=== PATIENT | female | born 1995 | race American Indian/Alaskan Native ===

== ENCOUNTER 2021-07-19 09:54 | Emergency (ER) | payer SELFPAY ==
[2021-07-19 11:04] VITALS: BP 127/58
[2021-07-19] MEDS ORDERED: ACETAMINOPHEN 325 MG TAB PO ONE (13:07)
--- NOTE | 2021-07-19 13:08 | Emergency Department Report ---
ED General Adult HPI - General Chief complaint: Abdominal Pain Stated complaint: ABDOMINAL PAIN (7WKS PREG) Time Seen by Provider: 07/19/21 12:58 Source: patient, RN notes reviewed Mode of arrival: Ambulatory Limitations: No Limitations - History of Present Illness Initial comments: The patient was evaluated in the emergency department for symptoms described in the history of present illness. He/she was evaluated in the context of the global COVID-19 pandemic, which necessitated consideration that the patient might be at risk for infection with the virus that causes COVID-19. Institutional protocols and algorithms that pertain to the evaluation of patients at risk for COVID-19 are in a state of rapid change based on information released by regulatory bodies including the CDC and federal and state organizations. These policies and algorithms were followed during the patient's care in the emergency department. Please note that these policies, procedures and recommendations changed on a rapid basis. The patient is a 25-year-old female who is 1, para 0, last menstrual period mid April, who presents to the ER with a complaint of 2 weeks abdominal cramping. No nausea, vomiting, diarrhea, fever, or dysuria. No vaginal bleeding. No additional injuries or complaints. Reports having had an ultrasound performed at another hospital/emergency room ("I do not remember which one") a few weeks ago. Does not have an outpatient [facility] CONTR[facility]LLER at this time. Has not taken anything for pain. -: Gradual, week(s) Location: abdomen Severity scale (0 -10): 10 Quality: aching Consistency: intermittent Improves with: none Worsens with: none Associated Symptoms: denies other symptoms - Related Data Previous Rx's Medication Instructions Recorded Last Taken Type Acetaminophen [Non-Aspirin Extra 500 mg PO Q6HR PRN #30 tablet 07/19/21 Unknown Rx Strength] Doxylamine Succinate/Vit B6 1 each PO QHS PRN #30 tablet. 07/19/21 Unknown Rx [Julia Granados 10-10 mg Tablet] Medina Root [Medina] 250 mg PO QID PRN #30 capsule 07/19/21 Unknown Rx Vit-Fe Fumar-FA [ 1 tab PO QDAY #30 tablet 07/19/21 Unknown Rx Vitamin] Allergies Allergy/AdvReac Type Severity Reaction Status Date / Time No Known Allergies Allergy Unverified 07/19/21 10:59 ED Review of Systems ROS: Stated complaint: ABDOMINAL PAIN (7WKS PREG) Other details as noted in HPI Constitutional: denies: fever Eyes: denies: eye discharge ENT: denies: epistaxis Respiratory: denies: cough Cardiovascular: denies: chest pain Gastrointestinal: abdominal pain. denies: nausea, vomiting, diarrhea, hematemesis, melena, hematochezia Genitourinary: denies: dysuria Musculoskeletal: denies: back pain Neurological: denies: weakness ED Past Medical Hx - Medications Home Medications: Home Medications Medication Instructions Recorded Confirmed Last Taken Type Acetaminophen [Non-Aspirin Extra 500 mg PO Q6HR PRN #30 tablet 07/19/21 Unknown Rx Strength] Doxylamine Succinate/Vit B6 1 each PO QHS PRN #30 tablet. 07/19/21 Unknown Rx [Diclegis Dr 10-10 mg Tablet] Medina Root [Medina] 250 mg PO QID PRN #30 capsule 07/19/21 Unknown Rx Vit-Fe Fumar-FA [ 1 tab PO QDAY #30 tablet 07/19/21 Unknown Rx Vitamin] ED Physical Exam - General Limitations: No Limitations General appearance: alert, in no apparent distress - Head Head exam: Present: atraumatic, normocephalic - Eye Eye exam: Present: normal appearance, EOMI. Absent: nystagmus - ENT ENT exam: Present: normal exam, normal orophraynx, mucous membranes moist, normal external ear exam - Neck Neck exam: Present: normal inspection, full ROM. Absent: tenderness, meningismus - Respiratory Respiratory exam: Present: normal lung sounds bilaterally. Absent: respiratory distress, wheezes, rales, rhonchi, stridor, decreased breath sounds - Cardiovascular Cardiovascular Exam: Present: regular rate, normal rhythm, normal heart sounds. Absent: bradycardia, tachycardia, irregular rhythm, systolic murmur, diastolic murmur, rubs, gallop - GI/Abdominal GI/Abdominal exam: Present: soft. Absent: distended, tenderness, guarding, rebound, rigid, pulsatile mass - Extremities Exam Extremities exam: Present: normal inspection, full ROM, other (2+ pulses noted in the bilateral upper and lower extremities. There is no palpable cord. negative Homans sign. Muscular compartments are soft. The pelvis is stable.). Absent: pedal edema, calf tenderness - Back Exam Back exam: Present: normal inspection, full ROM. Absent: tenderness, CVA tenderness (R), CVA tenderness (L), paraspinal tenderness, vertebral tenderness - Neurological Exam Neurological exam: Present: alert, oriented X3, normal gait, other (No facial droop. Tongue midline. Extraocular movements intact bilaterally. Facial sensation intact to light touch in V1, V2, V3 distribution bilaterally. 5 and a 5 strength in 4 extremities. Sensation intact to light touch in 4 extremi ties.). Absent: motor sensory deficit - Psychiatric Psychiatric exam: Present: normal affect, normal mood - Skin Skin exam: Present: warm, dry, intact, normal color. Absent: rash ED Course Vital Signs 07/19/21 11:02 Temperature 99.1 F Pulse Rate 79 Respiratory 18 Rate Blood Pressure 127/58 [Right] O2 Sat by Pulse 100 Oximetry - Reevaluation(s) Reevaluation #1: 07/19/21 13:39 Differential diagnosis, including but not limited to: Constipation, UTI, bacteriuria, subchorionic bleed, ectopic , heterotopic , round ligament pain, functional abdominal pain Assessment and plan: 25-year-old female, who was afebrile, with reassuring vital signs, with no abdominal tenderness, rebound or guarding, negative Keller sign, negative Rovsing sign, no right lower quadrant tenderness, no right upper qu adrant tenderness, with a benign and unremarkable physical examination, with a reported history of abdominal pain and cramping for 2 weeks. Obtain ultrasound, urinalysis, CBC, quant hCG, and type and screen. Treat with Tylenol for pain. Reassess. History and physical not consistent with emergent surgical pathology at this time. 07/19/21 14:39 Patient in no acute distress. Urinalysis nonactionable. Ultrasound confirms IUP without concerning findings. No evidence of bleeding noted. Patient resting comfortably in stretcher at this time. She may follow-up with an outpatient [facility] provider to establish care. ED Medical Decision Making - Lab Data Result diagrams: 07/19/21 14:04 Vital Signs 07/19/21 11:02 Temperature 99.1 F Pulse Rate 79 Respiratory 18 Rate Blood Pressure 127/58 [Right] O2 Sat by Pulse 100 Oximetry Lab Results 07/19/21 07/19/21 Range/Units 14:04 Unknown WBC 4.8 (4.5-11.0) K/mm3 RBC 4.22 (3.65-5.03) M/mm3 Hgb 12.3 (10.1-14.3) gm/dl Hct 37.7 (30.3-42.9) % MCV 89 (79-97) fl MCH 29 (28-32) pg MCHC 33 (30-34) % RDW 14.7 (13.2-15.2) % Plt Count 209 (140-440) K/mm3 Lymph % (Auto) 38.3 H (13.4-35.0) % [place] % (Auto) 9.8 H (0.0-7.3) % Eos % (Auto) 0.5 (0.0-4.3) % Baso % (Auto) 0.5 (0.0-1.8) % Lymph # (Auto) 1.8 (1.2-5.4) K/mm3 [place] # (Auto) 0.5 (0.0-0.8) K/mm3 Eos # (Auto) 0.0 (0.0-0.4) K/mm3 Baso # (Auto) 0.0 (0.0-0.1) K/mm3 Seg Neutrophils % 50.9 (40.0-70.0) % Seg Neutrophils # 2.4 (1.8-7.7) K/mm3 Urine Color Yellow (Yellow) Urine Turbidity Hazy (Clear) Urine pH 7.0 (5.0-7.0) Ur Specific [place] 1.010 (1.003-1.030) Urine Protein <15 mg/dl (Negative) mg/dL Urine Glucose (UA) Neg (Negative) mg/dL Urine Ketones Neg (Negative) mg/dL Urine Blood Neg (Negative) Urine Nitrite Neg (Negative) Urine Bilirubin Neg (Negative) Urine Urobilinogen < 2.0 (<2.0) mg/dL Ur Leukocyte Esterase Neg (Negative) Urine WBC (Auto) < 1.0 (0.0-6.0) /HPF Urine RBC (Auto) < 1.0 (0.0-6.0) /HPF U Epithel Cells (Auto) 6.0 (0-13.0) /HPF Urine Mucus Few /HPF - Radiology Data Radiology results: pending, report reviewed, image reviewed [facility] OBSTETRIC ULTRASOUND ULTRASOUND OB TRANSVAGINAL HISTORY: Pain during COMPARISON: None. TECHNIQUE: Routine transabdominal and transvaginal OB ultrasound performed. FINDINGS: Uterus: Mildly enlarged measuring 9.5 x 5.6 x 6.2 cm. Gestational Sac: Well-defined oval shape and intrauterine in location. Yolk Sac: Normal in appearance. Fetus/Embryo: [place]- rump length of 1.71 cm, corresponding to an estimated gestational age of 8 weeks 1 day. Embryonic/ anatomy is too small for evaluation. Embryonic/ cardiac activity: 176bpm Placenta: Too small for evaluation. Amniotic fluid volume: Subjectively appropriate for gestational age. Ovaries: The right ovary is normal in size and appearance with normal blood flow, measuring 2.2 x 1.6 x 1.2 cm. The left ovary is normal in size and appearance with normal blood flow, measuring 4.4 x 2.3 x 2.5 cm. Additional findings: None. IMPRESSION Early live intrauterine . No acute abnormality is appreciated. Signer Name: Jesse Dye Jr, MD Signed: 07/19/2021 1:15 PM Workstation Name: [id number] Critical care attestation.: If time is entered above; I have spent that time in minutes in the direct care of this critically ill patient, excluding procedure time. ED Disposition Clinical Impression: Abdominal pain during Qualifiers: Trimester: first trimester Qualified Code(s): O26.891 - Other specified pre gnancy related conditions, first trimester; R10.9 - Unspecified abdominal pain Disposition: 01 HOME / SELF CARE / HOMELESS Is pt being admited?: No Does the pt Need Aspirin: No Condition: Good Instructions: Abdominal Pain (ED) Additional Instructions: Please take the pain medication as needed and directed, vitamins as directed, and nausea medicines as needed and directed. Follow-up as soon as possible with an outpatient [facility] CONTR[facility]LLER provider to establish outpatient care. Avoid consumption of Motrin, ibuprofen, Naprosyn, Aleve, heavy and spicy foods. Use the [employer] affordable prescription card to obtain affordable prescriptions if necessary. Please return to the emergency room right away with new pain, worsened pain, migration of pain, projectile vomiting, change in mental status, confusion, inability tolerate liquid feeds, new, worsened or different symptoms not present on the initial emergency room evaluation Prescriptions: Medina Root [Medina] 250 mg PO QID PRN #30 capsule PRN Reason: Nausea Acetaminophen [Non-Aspirin Extra Strength] 500 mg PO Q6HR PRN #30 tablet PRN Reason: Pain , Severe (7-10) Vit-Fe Fumar-FA [ Vitamin] 1 tab PO QDAY #30 tablet Referrals: [facility] [Provider Group] - 3-5 Days [facility] [Provider Group] - 3-5 Days [facility] [Provider Group] - 3-5 Days
[2021-07-19 13:59] LABS: Bilirubin,Urine NEG (Negative); Blood,Urine NEG (Negative); Color,Urine Yellow (Yellow); Mucus,Urine FEW /HPF; Protein,Urine <15 mg/dL mg/dL (Negative); Urobilinogen,Urine < 2.0 mg/dL (<2.0); WBC,Urine < 1.0 /HPF (0.0-6.0)
[2021-07-19 14:01] LABS: RBC,Urine < 1.0 /HPF (0.0-6.0)
[2021-07-19 14:17] LABS: Basophils % (Auto) 0.5 % (0.0-1.8); Eosinophils % (Auto) 0.5 % (0.0-4.3); Hematocrit 37.7 % (30.3-42.9); Hemoglobin 12.3 gm/dl (10.1-14.3); Lymphocytes # (Auto) 1.8 K/mm3 (1.2-5.4); Lymphocytes % (Auto) 38.3 % (13.4-35.0); Mean Corpuscular HGB Conc 33 % (30-34); Mean Corpuscular Volume 89 fl (79-97); Monocytes # (Auto) 0.5 K/mm3 (0.0-0.8); Monocytes % (Auto) 9.8 % (0.0-7.3); Platelet Count 209 K/mm3 (140-440); Red Blood Count 4.22 M/mm3 (3.65-5.03); Red Cell Distribution Width 14.7 % (13.2-15.2)
--- NOTE | 2021-07-19 14:20 | Ultrasound Report ---
FIRSTTRIMESTER OBSTETRIC ULTRASOUND ULTRASOUND OB TRANSVAGINAL HISTORY: Pain during COMPARISON: None. TECHNIQUE: Routine transabdominal and transvaginal OB ultrasound performed. FINDINGS: Uterus: Mildly enlarged measuring 9.5 x 5.6 x 6.2 cm. Gestational Sac: Well-defined oval shape and intrauterine in location. Yolk Sac: Normal in appearance. Fetus/Embryo: [place]-rump length of 1.71 cm, corresponding to an estimated gestational age of 8 weeks 1 day. Embryonic/ anatomy is too small for evaluation. Embryonic/ cardiac activity: 176bpm Placenta: Too small for evaluation. Amniotic fluid volume: Subjectively appropriate for gestational age. Ovaries: The right ovary is normal in size and appearance with normal blood flow, measuring 2.2 x 1. 6 x 1.2 cm. The left ovary is normal in size and appearance with normal blood flow, measuring 4.4 x 2.3 x 2.5 cm. Additional findings: None. IMPRESSION Early live intrauterine . No acute abnormality is appreciated. Signer Name: Jesse Dye Jr, MD Signed: 07/19/2021 2:15 PM Workstation Name: [id number]
== END 2021-07-19 15:57 | disposition home or self-care (01) ==
LOC: ED 09:54
DX: O26.891 Other specified pregnancy related conditions, first trimester (principal); R10.9 Unspecified abdominal pain; Z79.82 Long term (current) use of aspirin; Z79.899 Other long term (current) drug therapy; Z3A.01 Less than 8 weeks gestation of pregnancy
CPT/HCPCS: 36415; 76801; 76817; 81001; 84702; 85025; 86850; 86900; 86901; 99284

== ENCOUNTER 2022-02-21 14:10 | Outpatient (CLI) | payer SELFPAY ==
[2022-02-21 15:01] VITALS: BP 113/74
[2022-02-21] MEDS ORDERED: hydrOXYzine HCL 100 MG/2 ML INJ IM ONE (15:48)
[2022-02-21] MEDS ORDERED: LACTATED RINGERS 1,000 ML IV ONE (15:48)
== END 2022-02-21 18:00 | disposition home or self-care (01) ==
LOC: TRG 14:10 → APU 14:11 → TRG 18:00
PROVIDERS: ATTEND Obstetrics & Gynecology Gynecology
DX: O62.9 Abnormality of forces of labor, unspecified (principal); O46.93 Antepartum hemorrhage, unspecified, third trimester; Z3A.39 39 weeks gestation of pregnancy
CPT/HCPCS: 59025; 96360

== ENCOUNTER 2022-02-22 03:14 | Inpatient (IN) | payer SELFPAY ==
[2022-02-22] MEDS ORDERED: ACETAMINOPHEN 325 MG TAB PO PRN (03:52)
[2022-02-22] MEDS ORDERED: MINERAL OIL 30 ML ORAL LIQD PO PRN (03:52)
[2022-02-22] MEDS ORDERED: BUTORPHANOL 2 MG/1 ML INJ IV PRN ×2 (03:52)
[2022-02-22] MEDS ORDERED: fentaNYL 100 MCG/2 ML INJ IV PRN (03:52)
[2022-02-22] MEDS ORDERED: METHYLERGONOVINE MALEATE 0.2 MG/ML VIAL IM PRN (03:52)
[2022-02-22] MEDS ORDERED: ePHEDrine SULFATE 50 MG/1 ML INJ IV PRN ×2 (03:52→08:00)
[2022-02-22] MEDS ORDERED: LOPERAMIDE 2 MG CAP PO PRN (03:52)
[2022-02-22] MEDS ORDERED: TERBUTALINE 1 MG/1 ML INJ SUB-Q PRN (03:52)
[2022-02-22] MEDS ORDERED: miSOPROStol 200 MCG TAB PR PRN (03:52)
[2022-02-22] MEDS ORDERED: CARBOPROST TROMETHAMINE 250 MCG/1 ML INJ IM PRN (03:52)
[2022-02-22] MEDS ORDERED: OXYTOCIN 10 UNIT/1 ML INJ IM PRN (03:52)
[2022-02-22] MEDS ORDERED: LIDOCAINE (2%) 20 MG/1 ML VIAL 20 ML MDV INFILTRATI ONE (03:52)
[2022-02-22] MEDS ORDERED: OXYTOCIN DRIP 30 UNITS/500 ML BAG IV SCH ×2 (04:00)
[2022-02-22] MEDS ORDERED: LACTATED RINGERS 1,000 ML IV SCH (04:00)
[2022-02-22 04:03] LABS: Hematocrit 35.1 % (30.3-42.9); Hemoglobin 12.3 gm/dl (10.1-14.3); Mean Corpuscular HGB Conc 35 % (30-34); Mean Corpuscular Volume 92 fl (79-97); Platelet Count 202 K/mm3 (140-440); Red Blood Count 3.82 M/mm3 (3.65-5.03); Red Cell Distribution Width 15.7 % (13.2-15.2)
--- NOTE | 2022-02-22 07:08 | Anesthesia Consultation ---
Anesthesia Consult and Med Hx Date of service: 02/22/22 - Airway Anesthetic Teeth Evaluation: Poor ROM Head & Neck: Adequate Mental/Hyoid Distance: Adequate Mallampati Class: Class II Intubation Access Assessment: Probably Good - Pulmonary Exam CTA: Yes - Cardiac Exam Cardiac Exam: RRR - Pre-Operative Health Status ASA Pre-Surgery Classification: ASA2 Proposed Anesthetic Plan: Epidural - Pulmonary Hx Asthma: No COPD: No Hx Pneumonia: No - Cardiovascular System Hx Hypertension: No - Central Nervous System Hx Seizures: No Hx Psychiatric Problems: No - Endocrine Hx Renal Disease: No Hx End Stage Renal Disease: No Hx Hypothyroidism: No Hx Hyperthyroidism: No - Hematic Hx Anemia: No Hx Sickle Cell Disease: No - Other Systems Hx Alcohol Use: No
--- NOTE | 2022-02-22 07:13 | Progress Note ---
Labor Epidural - Labor Epidural Start Time: 06:30 Stop Time: 06:42 Performed by:: CHONG DUMONT Procedure: Patient is requesting epidural for labor pain. H&P and labs reviewed. Procedure explained, questions answered, consent obtained. Patient placed in sitting position with monitors applied. Timeout performed immediately before start of procedure. Redirected to remain still multiple times. Patient moved throughout procedure even after being ask to remain still. Prep/drape in usual sterile fashion. Skin localized 3 mL 1% lidocaine at L[3]-L[4] interspace. 17-gauge Touhy epidural needle advanced to DESHAUN with saline at [6] cm. No blood/CSF noted via epidural needle. Epidural catheter advanced to [10] cm. Negative aspiration for blood and CSF via catheter, negative response to test dose 3 ml 1.5% lidocaine w/ Epi. Sterile dressing applied followed by tape reinforcement. Patient tolerated procedure well. No immediate complications noted.
--- NOTE | 2022-02-22 07:47 | History and Physical Report ---
History of Present Illness Date of examination: 02/22/22 Date of admission: 02/22/22 03:38 Chief complaint: Contractions History of present illness: 26-year-old primagravida at 39-1/7 weeks gestation presents to OB Triage reporting regular and painful uterine contractions. There is no vaginal bleeding. There is no leaking of fluid. There is good movement. In OB Triage, cervix was 8.5 cm dilated. As such, this patient was in active labor. The patient is admitted to Labor and Delivery for management of active labor at term. Past History Past Medical History: no pertinent history Past Surgical History: breast surgery Family/Genetic History: none Social history: no significant social history - Obstetrical History Expected Date of Delivery: 02/27/22 Actual Gestation: 39 Week(s) 2 Day(s) : 1 Para: 0 Hx # Term Pregnancies: 0 Number of Pregnancies: 0 Spontaneous Abortions: 0 Induced : 0 Number of Living Children: 0 Medications and Allergies Allergies Allergy/AdvReac Type Severity Reaction Status Date / Time No Known Allergies Allergy Verified 02/21/22 15:01 Home Medications Medication Instructions Recorded Confirmed Last Taken Type Acetaminophen [Non-Aspirin Extra 500 mg PO Q6HR PRN #30 tablet 07/19/21 Unknown Rx Strength] Doxylamine Succinate/Vit B6 1 each PO QHS PRN #30 tablet. 07/19/21 Unknown Rx [Julia Granados 10-10 mg Tablet] Medina Root [Medina] 250 mg PO QID PRN #30 capsule 07/19/21 Unknown Rx Vit-Fe Fumar-FA [ 1 tab PO QDAY #30 tablet 07/19/21 Unknown Rx Vitamin] Active Meds: Active Medications Carboprost Tromethamine (Carboprost Tromethamine 250 Mcg/1 Ml Inj) 250 mcg IM ONCE PRN PRN Reason: Uterine Bleeding Ephedrine Sulfate (Ephedrine Sulfate 50 Mg/1 Ml Inj) 10 mg IV Q2M PRN PRN Reason: Hypotension Oxytocin/Sodium Chloride (Pitocin/Ns 30 Unit/500ml) 30 units in 500 mls @ 2 ml s/hr IV TITR BIBI; Protocol Lactated Ringer's (Lactated Ringers) 1,000 mls @ 125 mls/hr IV DIRECT BIBI Oxytocin/Sodium Chloride (Pitocin/Ns 30 Unit/500ml) 30 units in 500 mls @ 40 mls/hr IV TITR BIBI; Protocol Fentanyl/Bupivacaine/Sodium Chlor (Fentanyl-Bupiv 2 Mcg/Ml-0.125%) 200 mcg in 100 mls @ 12 mls/hr EPIDURAL TITR BIBI; Protocol Last Admin: 02/22/22 07:36 Dose: 12 mls/hr Methylergonovine Maleate (Methylergonovine Maleate 0.2 Mg/Ml Vial) 0.2 mg IM ONCE PRN PRN Reason: Uterine Bleeding Naloxone HCl (Naloxone 0.4 Mg/1 Ml Inj) 0.2 mg IV Q5MIN PRN PRN Reason: Respiratory sedation Terbutaline Sulfate (Terbutaline 1 Mg/1 Ml Inj) 0.25 mg SUB-Q ONCE PRN PRN Reason: Hyperstimulation/Hypertonicity Review of Systems All systems: negative - Vital Signs Vital signs: Vital Signs Pulse Ox 100 02/22/22 03:43 Temp Pulse Resp BP Pulse Ox 98.3 F 99 H 18 122/58 99 02/22/22 03:59 02/22/22 07:42 02/22/22 03:59 02/22/22 07:42 02/22/22 07:38 - Physical Exam Breasts: Positive: normal Cardiovascular: Regular rate Lungs: Positive: Normal air movement Abdomen: Positive: normal appearance Genitourinary (Female): Positive: normal external genitalia, normal perenium Vulva: both: normal Vagina: Positive: normal moisture Uterus: Positive: enlarged Adnexa: both: normal Anus/Rectum: Positive: normal perianal skin Extremities: Positive: normal Deep Tendon Reflex Grade: Normal +2 - Obstetrical FHR: category 1 Uterine Contraction Monitor Mode: External Cervical Dilatation: 8.5 Cervical Effacement Percentage: 90 station: -1 Uterine Contraction Frequency (min): 5 Uterine Contraction Pattern: Regular Results Result Diagrams: 02/22/22 03:47 Abnormal lab results 02/22/22 Range/Units 03:47 MCHC 35 H (30-34) % RDW 15.7 H (13.2-15.2) % All other labs normal. Assessment and Plan - Patient Problems (1) 39 weeks gestation of Current Visit: Yes Status: Acute Plan to address problem: care is up-to-date at [facility]. The patient is GBS negative. (2) Active labor at term Current Visit: Yes Status: Acute Plan to address problem: The patient is 8.5 cm dilated. Admit to Labor and Delivery. Expectant management for now. Epidural as needed. Augment with Pitocin as needed.
[2022-02-22] MEDS ORDERED: NALOXONE 0.4 MG/1 ML INJ IV PRN (08:00)
[2022-02-22] MEDS ORDERED: fentaNYL-BUPIV 2 MCG/ML-0.125% 200 MCG/100 ML BAG EPIDURAL SCH (08:00)
[2022-02-22] MEDS ORDERED: MINERAL OIL 30 ML ORAL LIQD ONE (09:24)
[2022-02-22] MEDS ORDERED: MINERAL OIL ENEMA 133 ML PR NR (11:00)
--- NOTE | 2022-02-22 11:45 | Procedure Note ---
OB Delivery Note - Delivery Date of Delivery: 02/22/22 (1022) Surgeon: SAULO PINZON Estimated blood loss: 300cc - Vaginal Delivery presentation: vertex Delivery position: OA Intrapartum events: meconium, prolonged 2nd stage>2.5hr Delivery induction: none Delivery augmentation: rupture of membranes Delivery monitor: external FHT, external uterine Route of delivery: Delivery placenta: spontaneous Delivery cord: nuchal cord (x1) Episiotomy: mediolateral Delivery repair: vicryl Anesthesia: epidural Delivery comments: of a live 7'7 female infant over a 2nd degree mediolaeral episiotomy under epidural anesthesia with Apgars of 9 and 9 at 1022 on 02/22/2022. Nuchal cord x 1 easily manually reduced on the perineum prior to delivery of the anterior shoulder. Cord double clamped and cut by DEANGELO Pinzon, and handed to awaiting NICU/RESP team due to meconium stained fluids. Spontaneous delivery of placenta complete and intact with [place] side presenting at 1055. Placenta is heavily calcified. Placenta to pathology. Fundus is firm and midline located 5 below the U. Lochia is scant. 2nd degree episiotomy repaired with 2- Vicryl on a CT-1 and SH. - A at 1 minute: 9 at 5 minutes: 9 Infant Gender: Female (7'7)
[2022-02-22] MEDS ORDERED: PROMETHAZINE 25 MG TAB PO PRN (12:00)
[2022-02-22] MEDS ORDERED: HYDROCORTISONE 25 MG RECTAL SUPP PR PRN (12:00)
[2022-02-22] MEDS ORDERED: BENZOCAINE/MENTHOL 20/0.5% TOP SPRAY 56 GM TP PRN (12:00)
[2022-02-22] MEDS ORDERED: WITCH HAZEL/ GLYCERIN PAD TP PRN (12:00)
[2022-02-22] MEDS ORDERED: diphenhydrAMINE 25 MG CAP PO PRN (12:00)
[2022-02-22] MEDS ORDERED: LANOLIN/ZINC/DIMETHICONE (LANSINOH) 7 GM TP PRN (12:00)
[2022-02-22] MEDS: IBUPROFEN 800 MG TAB PO SCH (14:41)
[2022-02-23] MEDS: IBUPROFEN 800 MG TAB PO SCH ×2 (00:04→18:44)
[2022-02-23 01:03] LABS: Hematocrit 32.9 % (30.3-42.9); Hemoglobin 10.8 gm/dl (10.1-14.3)
[2022-02-23] MEDS: HYDROcodone/ACETAMINOPHEN 5-325 MG TAB PO PRN (08:18)
--- NOTE | 2022-02-23 08:34 | Progress Note ---
Assessment and Plan A: PPD # 1 - stable P: Plan discharge home in am Discharge instructions given Subjective - Subjective Date of service: 02/23/22 Principal diagnosis: PPD #1 Patient reports: appetite normal : doing well Objective - Vital Signs Latest vital signs: Vital Signs Temp Pulse Resp BP BP Pulse Ox Pulse Ox 02/22/22 20:00 99 02/22/22 19:58 98.2 F 103 H 18 115/76 99 02/22/22 15:05 99.6 F 93 H 20 118/79 99 02/22/22 14:41 20 02/22/22 14:01 108 H 100 02/22/22 13:56 118 H 99 02/22/22 13:54 117 H 85 02/22/22 13:51 115 H 99 02/22/22 13:46 113 H 98 02/22/22 13:41 111 H 109/69 86 02/22/22 13:40 89 02/22/22 13:30 98.8 F 02/22/22 12:14 90 94 02/22/22 12:13 93 H 95 02/22/22 12:12 95 H 130/67 02/22/22 12:08 97 H 97 02/22/22 12:03 95 H 97 02/22/22 11:58 105 H 99 02/22/22 11:57 103 H 125/60 02/22/22 11:53 110 H 99 02/22/22 11:48 115 H 100 02/22/22 11:43 107 H 100 02/22/22 11:42 109 H 131/63 02/22/22 11:38 105 H 99 02/22/22 11:33 103 H 99 02/22/22 11:28 103 H 131/76 100 02/22/22 11:23 109 H 100 02/22/22 11:18 98 H 100 02/22/22 11:13 104 H 100 02/22/22 11:11 103 H 126/58 02/22/22 11:08 105 H 99 02/22/22 11:03 108 H 100 02/22/22 11:00 98.7 F 02/22/22 10:58 105 H 100 02/22/22 10:57 106 H 127/58 02/22/22 10:53 106 H 100 02/22/22 10:48 112 H 100 02/22/22 10:43 112 H 100 02/22/22 10:41 114 H 129/59 02/22/22 10:38 115 H 100 02/22/22 10:33 117 H 100 02/22/22 10:28 116 H 99 02/22/22 10:27 113 H 131/60 02/22/22 10:23 114 H 100 02/22/22 10:18 133 H 99 02/22/22 10:13 121 H 171/74 100 02/22/22 10:08 119 H 100 02/22/22 10:03 112 H 100 02/22/22 09:58 117 H 100 02/22/22 09:57 115 H 124/60 02/22/22 09:53 113 H 99 02/22/22 09:48 112 H 99 02/22/22 09:44 133 H 135/84 02/22/22 09:43 115 H 100 02/22/22 09:38 111 H 99 02/22/22 09:33 123 H 99 02/22/22 09:28 117 H 99 02/22/22 09:26 116 H 103/59 02/22/22 09:23 118 H 98 02/22/22 09:18 114 H 97 02/22/22 09:13 112 H 97 02/22/22 09:12 107 H 106/55 02/22/22 09:11 115 H 94 02/22/22 09:08 115 H 100 02/22/22 09:03 106 H 96 02/22/22 08:58 105 H 95 02/22/22 08:56 106 H 104/53 02/22/22 08:54 113 H 97/51 02/22/22 08:53 108 H 99 02/22/22 08:52 111 H 115/57 02/22/22 08:50 109 H 150/68 92 02/22/22 08:48 98 H 127/61 99 02/22/22 08:46 100 H 129/63 02/22/22 08:44 100 H 125/58 02/22/22 08:43 104 H 100 02/22/22 08:42 102 H 106/54 02/22/22 08:40 108 H 113/57 02/22/22 08:38 106 H 115/55 99 02/22/22 08:36 103 H 115/55 02/22/22 08:34 111 H 103/55 02/22/22 08:33 109 H 99 Intake and Output 02/22/22 02/23/22 02/23/22 22:59 06:59 14:59 Intake Total 240 250 Output Total 0 Balance 240 250 Intake: Oral 240 250 Output: Urine 0 Void 0 Other: Total, Intake Amount 240 250 Total, Output Amount 0 # Voids Void 1 Estimated Blood Loss 300 - Exam Breasts: Present: deferred Cardiovascular: Present: Regular rate Lungs: Present: Clear to auscultation Abdomen: Present: soft Vulva: both: normal Uterus: Present: fundal height below umbilicus Deep Tendon Reflex Grade: Normal +2 Incision: Present: normal
--- NOTE | 2022-02-23 08:38 | Discharge Summary ---
Providers - Providers Date of Admission: 02/22/22 03:38 Date of discharge: 02/24/22 Attending physician: MARY ANN FLORES MD Primary care physician: MARY ANN FLORES MD Hospitalization Reason for admission: active labor Delivery: Episiotomy: mediolateral Laceration: 2nd degree Incision: intact complications: none Discharge diagnosis: IUP at term delivered [place] baby: female Hospital course: uneventful hospital course Condition at discharge: Good Disposition: 01 HOME / SELF CARE / HOMELESS Plan - Provider Discharge Summary Activity: routine, no sex for 6 weeks, no strenuous exercise Diet: routine Instructions: routine Additional instructions: [] Smoking cessation referral if applicable(refer to patient education folder for contact #) [] Refer to [facility]'s [facility] Booklet Call your doctor immediately for: * Fever > 100.5 * Heavy vaginal bleeding ( >1 pad per hour) * Severe persistent headache * Shortness of breath * Reddened, hot, painful area to leg or breast * Drainage or odor from incision. * Keep incision clean and dry at all times and follow doctor's instructions regarding bathing/showering - Follow up plan Follow up: MARY ANN FLORES MD [Primary Care Provider] - 6 Weeks
[2022-02-23] MEDS: PRENATAL VIT27-FE FUMARATE-FOLIC ACID VIT TAB PO SCH (10:45)
--- NOTE | 2022-02-23 11:55 | Post Anesthesia Evaluation ---
- Post Anesthesia Evaluation Patient Participated: Yes Airway Patent: Yes Stable Respiratory Function: Yes Nausea/Vomiting: No Temp > 96.8F: Yes Pain Manageable: Yes Adequeate Hydration: Yes Anesthesia Complications: No Block Receding Appropriately: Yes Patient on Ventilator: No
[2022-02-23] MEDS ORDERED: MEASLES, MUMPS & RUBELLA 12,500 UNIT/0.5 ML VACCINE SUB-Q ONE (16:00)
[2022-02-24] MEDS: HYDROcodone/ACETAMINOPHEN 5-325 MG TAB PO PRN (09:03)
[2022-02-24] MEDS: PRENATAL VIT27-FE FUMARATE-FOLIC ACID VIT TAB PO SCH (09:08)
[2022-02-24 09:32] VITALS: BP 108/67
== END 2022-02-24 14:00 | disposition home or self-care (01) | DRG 807 ==
LOC: TRG 03:14 → APU 03:16 → TRG 03:37 → LD 03:38 → OB 14:08
PROVIDERS: ADMIT Obstetrics & Gynecology Gynecology; ATTEND Obstetrics & Gynecology Gynecology
PROC: 10E0XZZ Delivery of Products of Conception, External Approach (ICD-10-PCS; principal; 2022-02-22)
PROC: 0W8NXZZ Division of Female Perineum, External Approach (ICD-10-PCS; 2022-02-22)
PROC: 3E0R3BZ Introduction of Anesthetic Agent into Spinal Canal, Percutaneous Approach (ICD-10-PCS; 2022-02-22)
PROC: 00HU33Z Insertion of Infusion Device into Spinal Canal, Percutaneous Approach (ICD-10-PCS; 2022-02-22)
PROC: 3E0234Z Introduction of Serum, Toxoid and Vaccine into Muscle, Percutaneous Approach (ICD-10-PCS; 2022-02-23)
DX: O69.81X0 Labor and delivery complicated by cord around neck, without compression, not applicable or unspecified (principal); Z37.0 Single live birth; Z3A.39 39 weeks gestation of pregnancy; Z20.822 Contact with and (suspected) exposure to COVID-19; Z23 Encounter for immunization; O77.0 Labor and delivery complicated by meconium in amniotic fluid; O63.1 Prolonged second stage (of labor)
CPT/HCPCS: 36415; 85014; 85018; 85027; 86592; 86762; 86850; 86900; 86901; 88307; 90707; G0378; J3490; J2590; U0003